=== PATIENT | female | born 1985 | race American Indian/Alaskan Native ===

== ENCOUNTER 2017-12-08 19:05 | Emergency (ER) | payer MEDICAID ==
[2017-12-08] MEDS ORDERED: MOTRIN PO ONE ×2 (23:22→23:24)
--- NOTE | 2017-12-09 01:00 | Emergency Department Report ---
Upper Extremity - HPI Chief Complaint: Extremity Injury, Upper Stated Complaint: BODY PAIN Time Seen by Provider: 12/09/17 00:28 Upper Extremity: Left Little Finger Occurred When: >5 Days (over 2 weeks) Mechanism: Other (healing laceration) Symptoms: Yes Limited Range of Movement, Yes Numbness, No Pain with Movement, No Deformity, No Weakness, No Swelling, No Bruising/Ecchymosis, No Laceration or Abrasion Other History: 32-year-old female past medical history bipolar, PTSD, GERD, sickle cell trait presents with complaint of intermittent tingling and numbness left distal pinky finger for more than 2 weeks. Patient states she recently had a deep laceration in web space between fourth and fifth digits left hand. Wrist awake alert and oriented 3. Denies fever chills. States stitches were removed over 1 week ago. Denies any pus drainage or erythema from site. Patient also incidentally states for several years she has had intermittent neck discomfort which slightly radiates into her left shoulder with some associated occasional tingling in left upper arm when she exerts herself. Denies any recent trauma denies any nuchal rigidity fevers chills headache blurry vision paresthesias otherwise. Patient also incidentally states she's had 3 days of increased urinary frequency. Denies any flank pain nausea vomiting or abdominal pain denies any suprapubic pain denies any vaginal discharge ED Review of Systems ROS: Stated complaint: BODY PAIN Other details as noted in HPI Constitutional: denies: chills, fever Eyes: denies: eye pain, eye discharge, vision change ENT: denies: ear pain, throat pain Respiratory: denies: cough, shortness of breath, wheezing Cardiovascular: denies: chest pain, palpitations Endocrine: no symptoms reported Gastrointestinal: denies: abdominal pain, nausea, diarrhea Genitourinary: denies: urgency, dysuria, discharge Musculoskeletal: as per HPI. denies: back pain, joint swelling, arthralgia Skin: denies: rash, lesions Neurological: denies: headache, weakness, paresthesias Psychiatric: denies: anxiety, depression Hematological/Lymphatic: denies: easy bleeding, easy bruising ED Past Medical Hx - Past Medical History Previous Medical History?: Yes Hx GERD: Yes Hx Psychiatric Treatment: Yes (bipolar, depression, PTSD) Additional medical history: sickle cell trait - Surgical History Past Surgical History?: Yes Additional Surgical History: cyst removed form fallopen tubes - Social History Smoking Status: Never Smoker Substance Use Type: None - Medications Home Medications: Home Medications Medication Instructions Recorded Confirmed Last Taken Type Acetaminophen/Codeine [Tylenol 1 tab PO Q8H PRN #8 tab 12/09/17 Unknown Rx /Codeine # 3 tab] Sulfamethoxazole/Trimethoprim 1 each PO BID #14 tablet 12/09/17 Unknown Rx [Bactrim DS TAB] Upper Extremity Exam - Exam General: Vital signs noted. No distress. Alert and acting appropriately. Head and Torso: No HEENT Abnormality (range of motion neck flexion and extension lateral rotation lateral flexion clinically intact), No Neck Tenderness, No Chest/Lungs Abnormality, No Abdominal Tenderness, No Back Tenderness Shoulder Exam: Yes Normal Range of Motion in Shoulder, No Shoulder Tenderness, No Clavicle Tenderness, No Shoulder Deformity, No AC Joint Tenderness Arm Exam: No Arm/Humerus Tenderness, No Arm Deformity Elbow: No Elbow Tenderness, No Normal Range of Motion in Elbow, No Elbow Deformity Forearm: No Forearm Tenderness, No Forearm Deformity, No Pain with Pronation, No Pain with Supination Wrist: Yes Normal ROM in Wrist, No Wrist Tenderness, No Wrist Deformity, No Snuffbox Tenderness, No Pain with Axial Thumb Compression Hand: Yes Normal ROM in Digit(s), No Hand Tenderness, No Hand Deformity, No Digit Tenderness, No Digit(s) Deformity, No Tendon Dysfunction CMS Exam: Yes Normal Distal Pulses (distal radial brachial and ulnar pulses strong to palpation,), Yes Normal Capillary Refill (capillary refill less than one second all fingers), Yes Normal Distal Sensation (some lack of sensation on medial aspect of left distal pinky finger between the MCP and PIP), No Broken Skin Hand L/R Back: 1 - Healing laceration ED Course Vital Signs 12/08/17 12/08/17 22:07 22:12 Temperature 98.1 F 98.1 F Pulse Rate 70 70 Respiratory 16 16 Rate Blood Pressure 100/59 100/59 O2 Sat by Pulse 100 100 Oximetry ED Medical Decision Making - Medical Decision Making A/P: Peripheral neuropathy secondary to healing laceration, chronic cervical radiculopathy, dysuria 1-no clinical signs of infection at site of laceration on left hand. Appears to be healing well. It is possible that patient experienced some nerve damage due to deep wound. Distal capillary refill less than 1 second all digits left hand. Range of motion intact but somewhat difficult range of motion at DIP left pinky. Patient given Velcro ulnar gutter splint for support 2-acetaminophen and Flexeril when necessary 3-I emphasized the importance of follow-up with primary care and orthopedics to the patient. 4- possible UTI empiric treatment with course of Bactrim. Urinalysis and urine culture sent patient did not wait for results so I treated her empirically Critical care attestation.: If time is entered above; I have spent that time in minutes in the direct care of this critically ill patient, excluding procedure time. ED Disposition Clinical Impression: Cervical radiculopathy, Dysuria Peripheral neuropathy Qualifiers: Peripheral neuropathy type: polyneuropathy, unspecified Qualified Code(s): G62.9 - Polyneuropathy, unspecified Disposition: TO HOME OR SELFCARE Is pt being admited?: No Does the pt Need Aspirin: No Condition: Stable Instructions: Peripheral Neuropathy (ED), Cervical Radiculopathy (ED), Urinary Tract Infection in Women (ED), Dysuria (ED) Prescriptions: Acetaminophen/Codeine [Tylenol /Codeine # 3 tab] 1 tab PO Q8H PRN #8 tab PRN Reason: Pain Sulfamethoxazole/Trimethoprim [Bactrim DS TAB] 1 each PO BID #14 tablet Referrals: [facility] [Outside] - 3-5 Days [facility] [Outside] - 3-5 Days NICOLA MEADOWS MD [Staff Physician] - 3-5 Days [facility] [Provider Group] - 3-5 Days Forms: Work/School Release Form(ED) Time of Disposition: :
[2017-12-09] MEDS ORDERED: NORCO 5/325 PO ONE (01:03)
[2017-12-09 01:38] VITALS: BP 127/89
== END 2017-12-09 01:10 | disposition home or self-care (01) ==
LOC: ED 19:05
DX: M79.645 Pain in left finger(s) (principal); M54.12 Radiculopathy, cervical region; G62.9 Polyneuropathy, unspecified; K21.9 Gastro-esophageal reflux disease without esophagitis
CPT/HCPCS: 99282

== ENCOUNTER 2019-08-31 11:39 | Emergency (ER) | payer SELFPAY ==
[2019-08-31 17:24] LABS: Alanine Aminotransferase 17 units/L (7-56); Albumin 4.7 g/dL (3.9-5); BUN/Creatinine Ratio 20; Blood Urea Nitrogen 10 mg/dL (7-17); Calcium 8.7 mg/dL (8.4-10.2); Hemolysis Index 24
[2019-08-31 17:51] LABS: Hematocrit 37.7 % (30.3-42.9); Hemoglobin 13.1 gm/dl (10.1-14.3); Mean Corpuscular HGB Conc 35 % (30-34); Mean Corpuscular Volume 93 fl (79-97); Platelet Count 308 K/mm3 (140-440); Red Blood Count 4.06 M/mm3 (3.65-5.03); Red Cell Distribution Width 15.4 % (13.2-15.2)
[2019-08-31] MEDS ORDERED: ONDANSETRON 4 MG/2 ML INJ IV ONE (18:50)
[2019-08-31] MEDS ORDERED: FAMOTIDINE 20 MG/2 ML INJ IV ONE (18:50)
[2019-08-31] MEDS ORDERED: SODIUM CHLORIDE 0.9% 1000 ML 1,000 ML IV ONE ×2 (18:50→21:24)
[2019-08-31 21:07] LABS: HCG Qualitative,Urine Negative (Negative)
[2019-08-31 21:10] LABS: Bilirubin,Urine NEG (Negative); Blood,Urine NEG (Negative); Color,Urine Yellow (Yellow); Mucus,Urine 3+ /HPF; Urobilinogen,Urine < 2.0 mg/dL (<2.0)
[2019-08-31] MEDS ORDERED: METOCLOPRAMIDE 10 MG/2 ML INJ IV ONE (21:24)
[2019-08-31] MEDS ORDERED: BUTALB/ACETAMINOPHEN/CAFFEINE TAB PO ONE (21:24)
[2019-08-31] MEDS ORDERED: KETOROLAC 30 MG/1 ML INJ IV ONE (21:24)
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
[2019-08-31 23:37] VITALS: BP 120/68
== END 2019-08-31 23:35 | disposition home or self-care (01) ==
LOC: ED 11:39
DX: A08.4 Viral intestinal infection, unspecified (principal); K21.9 Gastro-esophageal reflux disease without esophagitis; F31.9 Bipolar disorder, unspecified; F43.10 Post-traumatic stress disorder, unspecified; F17.200 Nicotine dependence, unspecified, uncomplicated; Z79.899 Other long term (current) drug therapy
CPT/HCPCS: 36415; 80053; 81001; 81025; 83690; 85025; J1885; J2405; J2765; J7030; 96361; 96374; 96375

== ENCOUNTER 2019-10-04 13:31 | Emergency (ER) | payer SELFPAY ==
[2019-10-04] MEDS ORDERED: ACETAMINOPHEN 500 MG TAB PO ONE (14:52)
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
[2019-10-04 16:38] VITALS: BP 117/86
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
[2019-10-05] MEDS ORDERED: IBUPROFEN 600 MG TAB PO ONE (11:49)
== END 2019-10-04 17:45 | disposition home or self-care (01) ==
LOC: ED 13:31
DX: S09.90XA Unspecified injury of head, initial encounter (principal); K21.9 Gastro-esophageal reflux disease without esophagitis; F17.200 Nicotine dependence, unspecified, uncomplicated; Z79.899 Other long term (current) drug therapy; Y04.8XXA Assault by other bodily force, initial encounter; Y93.89 Activity, other specified; Y92.89 Other specified places as the place of occurrence of the external cause; Y99.8 Other external cause status
CPT/HCPCS: 70450

== ENCOUNTER 2022-02-23 01:11 | Emergency (ER) | payer SELFPAY ==
[2022-02-23] MEDS ORDERED: PANTOPRAZOLE 40 MG TAB PO ONE (10:02)
[2022-02-23] MEDS ORDERED: TETANUS,DIPH,PERTUSS(ACELL) VACCINE 0.5 ML SYRINGE IM ONE (10:02)
[2022-02-23] MEDS ORDERED: METOCLOPRAMIDE 10 MG TAB PO ONE (10:02)
--- NOTE | 2022-02-23 10:03 | Emergency Department Report ---
<PAPO CUETO - Last Filed: 02/23/22 14:47> ED General Adult HPI - General Chief complaint: Pain General Stated complaint: Generalized tingling, I passed out and hit my head. Time Seen by Provider: 02/23/22 09:53 Source: patient, EMS ( EMS documentation not available at time of chart dictation ), RN notes reviewed, old records reviewed Mode of arrival: Stretcher Limitations: No Limitations - History of Present Illness Initial comments: The patient was evaluated in the emergency department for symptoms described in the history of present illness. He/she was evaluated in the context of the global COVID-19 pandemic, which necessitated consideration that the patient might be at risk for infection with the virus that causes COVID-19. Institutional protocols and algorithms that pertain to the evaluation of patients at risk for COVID-19 are in a state of rapid change based on information released by regulatory bodies including the CDC and federal and state organizations. These policies and algorithms were followed during the patient's care in the emergency department. Please note that these policies, procedures and recommendations changed on a rapid basis. This patient is a 37-year-old female, who presents today with a complaint of generalized tingling, and feeling like she may have passed out yesterday. She does report recreational alcohol and/or marijuana consumption yesterday. She denies midline neck pain, chest pain, abdominal pain, shortness of breath, vomiting, and focal extremity weakness/numbness. She is not homicidal or suicidal. She denies travel, surgery, immobilization, DVT/PE risk factors. As per nursing documentation, patient reportedly arrived in restraints, and was cooperative upon initial arrival. No episodes of syncope or loss of consciousness for approximately 8 hours. -: Gradual Consistency: now resolved Improves with: none Worsens with: none - Related Data Previous Rx's Medication Instructions Recorded Last Taken Type Sulfamethoxazole/Trimethoprim 1 each PO BID #14 tablet 12/09/17 Unknown Rx [Bactrim DS TAB] Lansoprazole 15 mg PO BID #60 capsule. 08/19/18 Unknown Rx Dicyclomine [Bentyl] 20 mg PO Q6H PRN #24 tablet 08/31/19 Unknown Rx Famotidine [Pepcid] 20 mg PO Q12H #60 tablet 08/31/19 Unknown Rx Ondansetron [Zofran Odt] 4 mg PO Q6HR PRN #20 tab.rapdis 08/31/19 Unknown Rx Metoclopramide [Reglan] 10 mg PO QID PRN #30 tablet 02/23/22 Unknown Rx Multivitamin with Folic Acid [Cvs 400 mcg PO QDAY #30 tablet 02/23/22 Unknown Rx One Daily Essential Tablet] Allergies Allergy/AdvReac Type Severity Reaction Status Date / Time No Known Allergies Allergy Verified 12/08/17 22:19 ED Review of Systems Eyes: denies: eye discharge ENT: denies: epistaxis Respiratory: denies: wheezing Cardiovascular: syncope. denies: chest pain Gastrointestinal: denies: abdominal pain, vomiting Genitourinary: denies: dysuria Musculoskeletal: arthralgia, myalgia Neurological: headache Psychiatric: denies: homicidal thoughts, suicidal thoughts ED Past Medical Hx - Past Medical History Previous Medical History?: Yes Hx GERD: Yes Hx Psychiatric Treatment: Yes (bipolar, depression, PTSD) Additional medical history: sickle cell trait - Surgical History Past Surgical History?: Yes Additional Surgical History: cyst removed ovarian tubes - Social History Smoking Status: Current Every Day Smoker Substance Use Type: Alcohol - Medications Home Medications: Home Medications Medication Instructions Recorded Confirmed Last Taken Type Sulfamethoxazole/Trimethoprim 1 each PO BID #14 tablet 12/09/17 Unknown Rx [Bactrim DS TAB] Lansoprazole 15 mg PO BID #60 capsule. 08/19/18 Unknown Rx Dicyclomine [Bentyl] 20 mg PO Q6H PRN #24 tablet 08/31/19 Unknown Rx Famotidine [Pepcid] 20 mg PO Q12H #60 tablet 08/31/19 Unknown Rx Ondansetron [Zofran Odt] 4 mg PO Q6HR PRN #20 tab.rapdis 08/31/19 Unknown Rx Metoclopramide [Reglan] 10 mg PO QID PRN #30 tablet 02/23/22 Unknown Rx Multivitamin with Folic Acid [Cvs 400 mcg PO QDAY #30 tablet 02/23/22 Unknown Rx One Daily Essential Tablet] ED Physical Exam - General Limitations: No Limitations, Other (A strong smell of marijuana is appreciated) General appearance: alert, in no apparent distress - Head Head exam: Present: atraumatic, normocephalic - Eye Eye exam: Present: normal appearance, PERRL, EOMI. Absent: nystagmus - ENT ENT exam: Present: normal exam, normal orophraynx, mucous membranes moist, normal external ear exam - Neck Neck exam: Present: normal inspection, full ROM. Absent: tenderness, meningismus - Respiratory Respiratory exam: Present: normal lung sounds bilaterally. Absent: respiratory distress, wheezes, rales, rhonchi, stridor, decreased breath sounds - Cardiovascular Cardiovascular Exam: Present: regular rate, normal rhythm, normal heart sounds. Absent: bradycardia, tachycardia, irregular rhythm, systolic murmur, diastolic murmur, rubs, gallop - GI/Abdominal GI/Abdominal exam: Present: soft. Absent: distended, tenderness, guarding, r ebound, rigid, pulsatile mass - Extremities Exam Extremities exam: Present: full ROM, other (2+ pulses noted in the bilateral upper and lower extremities. There is no palpable cord. negative Homans sign. Muscular compartments are soft. The pelvis is stable.). Absent: normal inspection (Superficial abrasions noted to the bilateral upper extremities), lynne f tenderness - Back Exam Back exam: Present: normal inspection. Absent: tenderness, CVA tenderness (R), CVA tenderness (L), paraspinal tenderness, vertebral tenderness - Neurological Exam Neurological exam: Present: alert, oriented X3, other (No facial droop. Tongue midline. Extraocular movements intact bilaterally. Facial sensation intact to light touch in V1, V2, V3 distribution bilaterally. 5 and a 5 strength in 4 extremities. Sensation intact to light touch in 4 extremities.). Absent: motor sensory deficit - Psychiatric Psychiatric exam: Present: anxious. Absent: homicidal ideation, suicidal ideation - Skin Skin exam: Present: warm, dry, normal color, abrasion ED Course - Reevaluation(s) Reevaluation #1: 02/23/22 10:44 Differential diagnosis, including but not limited to: Orthostasis, vagal event, closed head injury, multiple abrasions, electrolyte derangement, marijuana use Concussion Assessment and plan: 37-year-old female, who is clinically sober, with a GCS of 15, patient is clinically sober at this time. The cervical spine is cleared through nexus and algerian c spine rule presenting with a complaint of nonspecific headache, which is preceded by recreational marijuana and alcohol use, drug use, nonspecific tingling and numbness, and syncope. She is not currently tachycardic, tachypneic or hypoxic, she denies DVT and pulmonary embolism risk factors, she is low risk by Wells criteria for pulmonary embolism she is PERC negative. She has superficial abrasions to the upper extremities, but is not homicidal or suicidal, she is cooperative, alert and oriented, she does not meet criteria for 1013 or involuntary confinement. Check EKG, appropriate laboratory studies, administer tetanus vaccination, treat symptoms, obtain noncontrast CT scan of the brain, and reassess. I discussed this plan of care with the patient. She is agreeable to the plan of care. Reevaluation #2: 02/23/22 13:00 CT scan of the brain negative for acute findings. Patient is found to have hyponatremia, which I suspect is hypovolemic hyponatremia. The remainder of laboratory studies are unremarkable, with the exception of pot assium 6.5, which is secondary to hemolysis. Mild anion gap is likely secondary to dehydration. IV fluids ordered, and repeat basic metabolic panel ordered. On repeat examination, sitting comfortably in chair, and in no acute distress. Reassess after repeat basic metabolic panel after initial IV fluid resuscitation 02/23/22 14:03 No episodes of loss of consciousness. Best basic metabolic panel pending Reevaluation #3: 02/23/22 14:47 Care will be transferred to the oncoming ER physician, Dr. Robledo, to follow-up on repeat basic metabolic panel. Presuming improvement and metabolic derangements, would consider this patient suitable for discharge. ED Medical Decision Making - Lab Data Result diagrams: 02/23/22 11:01 02/23/22 11:01 Vital Signs 02/23/22 02/23/22 02:41 10:23 Temperature 98 F Pulse Rate 82 Respiratory 18 Rate Blood Pressure 126/78 O2 Sat by Pulse 100 99 Oximetry - EKG Data -: EKG Interpreted by Ny EKG shows normal: sinus rhythm Rate: normal - EKG Data 02/23/22 10:34 The EKG is interpreted at 10: 14 Sinus rhythm, 63 bpm. Normal axis, normal P wave axis, high left ventricular voltage, QTC 4 4 0 ms. Abnormal EKG. Not a STEMI. No evidence of dysrhythmia noted. 02/23/22 10:35 There is no prior EKG available for comparison - Radiology Data Radiology results: pending, report reviewed, image reviewed CT HEAD WITHOUT CONTRAST INDICATION / CLINICAL INFORMATION: Syncope. TECHNIQUE: All CT scans at this location are performed using CT dose reduction for ALARA by means of automated exposure control. COMPARISON: None available. FINDINGS: HEMORRHAGE: None. EXTRA-AXIAL SPACES: Normal in size and morphology for the patient's age. VENTRICULAR SYSTEM: Normal in size and morphology for the patient's age. CEREBRAL PARENCHYMA: No significant abnormality. No acute territorial infarct. MIDLINE SHIFT / HERNIATION: None. CEREBELLUM / BRAINSTEM: No significant abnormality. ORBITS: Normal as visualized SOFT TISSUES: No significant abnormality. SKULL: No significant abnormality. PARANASAL SINUSES / MASTOID AIR CELLS: Normal as visualized ADDITIONAL FINDINGS: None. IMPRESSION: 1. No acute intracranial abnormality. Signer Name: Wallace Lorena Desai DO Signed: 02/23/2022 11:52 AM Workstation Name: [id number] ED Disposition Clinical Impression: Syncope Qualifiers: Syncope type: unspecified Qualified Code(s): R55 - Syncope and collapse Disposition: 01 HOME / SELF CARE / HOMELESS Is pt being admited?: No Does the pt Need Aspirin: No Condition: Good Instructions: Syncope, Syncope (ED) Additional Instructions: Do not drive or operate motor vehicles for the next 6 months, or until cleared to do so by a primary care doctor or water resource project manager. Please follow-up with a primary care doctor or water resource project manager within the next week. Avoid consumption of alcohol, tobacco, smoke products and recreational drugs. Drink 4 to 6 cups of water per day, and 4-5 balanced meals on a daily basis. Avoid contact sports and contact athletics. Take the medications as needed and directed. May take Tylenol and or ibuprofen as needed for physical pain. Pain typically gets worse before gets better after mild blunt trauma. Please return to the emergency room right away with new pain, worsened pain, migration of pain, projectile vomiting, change in mental status, confusion, inability tolerate liquid feeds, new, worsened or different symptoms not present on the initial emergency room evaluation Prescriptions: Multivitamin with Folic Acid [Cvs One Daily Essential Tablet] 400 mcg PO QDAY # 30 tablet Metoclopramide [Reglan] 10 mg PO QID PRN #30 tablet PRN Reason: Headache Referrals: [facility] [Provider Group] - 3-5 Days [facility] [Outside] - 3-5 Days [facility] [Outside] - 3-5 Days [facility] [Provider Group] - 3-5 Days Forms: Work/School Release Form(ED) <JUAN ROBLEDOIDANIALeela - Last Filed: 02/23/22 17:00> ED Review of Systems ROS: Stated complaint: Generalized tingling, I passed out and hit my head. Other details as noted in HPI ED Course Vital Signs 02/23/22 02/23/22 02/23/22 02:41 10:23 13:44 Temperature 98 F Pulse Rate 82 65 Respiratory 18 16 Rate Blood Pressure 126/78 Blood Pressure 141/78 [Left] O2 Sat by Pulse 100 99 99 Oximetry - Reevaluation(s) Reevaluation #4: 02/23/22 16:59 This patient repeated labs resulted with normal potassium at 3.7 from the abnormal 6.5 that is likely hemolyzed, sodium improved to 131 mg/dL from 128 e arlier. This patient is stable to be discharged at this point. Patient reassured to keep previous plan to follow-up with outpatient. ED Medical Decision Making - Lab Data Result diagrams: 02/23/22 11:01 02/23/22 14:35 Critical care attestation.: If time is entered above; I have spent that time in minutes in the direct care of this critically ill patient, excluding procedure time. ED Disposition Is pt being admited?: No Does the pt Need Aspirin: No Time of Disposition: 17:00
[2022-02-23 11:57] LABS: Basophils % (Auto) 0.3 % (0.0-1.8); Eosinophils % (Auto) 0.1 % (0.0-4.3); Hematocrit 39.8 % (30.3-42.9); Hemoglobin 13.6 gm/dl (10.1-14.3); Lymphocytes # (Auto) 1.3 K/mm3 (1.2-5.4); Lymphocytes % (Auto) 19.3 % (13.4-35.0); Mean Corpuscular HGB Conc 34 % (30-34); Mean Corpuscular Volume 97 fl (79-97); Monocytes # (Auto) 0.6 K/mm3 (0.0-0.8); Platelet Count 389 K/mm3 (140-440); Red Blood Count 4.11 M/mm3 (3.65-5.03); Red Cell Distribution Width 14.4 % (13.2-15.2)
[2022-02-23 12:09] LABS: INR 0.92 (0.87-1.13)
[2022-02-23 12:32] LABS: Albumin 5.4 g/dL (3.9-5); Blood Urea Nitrogen 14 mg/dL (7-17); Calcium 9.4 mg/dL (8.4-10.2); Hemolysis Index 94
[2022-02-23] MEDS ORDERED: SODIUM CHLORIDE 0.9% 1000 ML 2,000 ML IV ONE (12:35)
[2022-02-23 12:38] LABS: BUN/Creatinine Ratio 23
[2022-02-23 12:55] LABS: Alanine Aminotransferase 6 units/L (7-56)
--- NOTE | 2022-02-23 12:56 | Cat Scan Report ---
. CT HEAD WITHOUT CONTRAST INDICATION / CLINICAL INFORMATION: Syncope. TECHNIQUE: All CT scans at this location are performed using CT dose reduction for ALARA by means of automated exposure control. COMPARISON: None available. FINDINGS: HEMORRHAGE: None. EXTRA-AXIAL SPACES: Normal in size and morphology for the patient's age. VENTRICULAR SYSTEM: Normal in size and morphology for the patient's age. CEREBRAL PARENCHYMA: No significant abnormality. No acute territorial infarct. MIDLINE SHIFT / HERNIATION: None. CEREBELLUM / BRAINSTEM: No significant abnormality. ORBITS: Normal as visualized SOFT TISSUES: No significant abnormality. SKULL: No significant abnormality. PARANASAL SINUSES / MASTOID AIR CELLS: Normal as visualized ADDITIONAL FINDINGS: None. IMPRESSION: 1. No acute intracranial abnormality. Signer Name: Wallace Desai DO Signed: 02/23/2022 12:52 PM Workstation Name: [id number]
[2022-02-23 13:44] VITALS: BP 141/78
[2022-02-23 15:21] LABS: Blood Urea Nitrogen 13 mg/dL (7-17); Calcium 8.8 mg/dL (8.4-10.2); Hemolysis Index 1
[2022-02-23 15:22] LABS: BUN/Creatinine Ratio 22
--- NOTE | 2022-02-26 12:18 | Electrocardiograph Report ---
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
== END 2022-02-23 17:26 | disposition home or self-care (01) ==
LOC: ED 01:11
DX: R55 Syncope and collapse (principal); K21.9 Gastro-esophageal reflux disease without esophagitis; F32.9 Major depressive disorder, single episode, unspecified; F43.10 Post-traumatic stress disorder, unspecified; D57.3 Sickle-cell trait; Z98.890 Other specified postprocedural states; F17.290 Nicotine dependence, other tobacco product, uncomplicated
CPT/HCPCS: 36415; 70450; 80048; 80053; 83735; 84484; 84703; 85025; 85610; 90471; 90715; 93005; 99284; J7030; 80320; G0480